=== PATIENT | male | born 1945 | race Caucasian/White ===

== ENCOUNTER 2022-03-07 16:18 | Inpatient (IN) | payer MEDICARE, OTHER ==
[~2022-03-07] VITALS: Ht 182.9 cm; Wt 93.4 kg
[2022-03-07 17:00] LABS: HEMATOCRIT 41.6 % (36.7-47.1); MEAN CORPUSCULAR HEMOGLOBIN 30.8 uug (23.8-33.4); MEAN CORPUSCULAR VOLUME 91.6 fL (73.0-96.2); PLATELET COUNT (AUTO) 212 K/uL (152-348)
[2022-03-07 17:12] LABS: ETHANOL < 3 MG/DL (0-0)
[2022-03-07] MEDS ORDERED: OLANZAPINE 10 MG VIAL IM ONE ×2 (17:15→17:23)
[2022-03-07 17:20] LABS: ALANINE AMINOTRANSFERASE 16 U/L (16-63); ALKALINE PHOSPHATASE 82 U/L (50-136); ASPARTATE AMINOTRANSFERASE 7 U/L (15-37); BILIRUBIN,TOTAL 0.6 mg/dL (0.2-1.0); CARBON DIOXIDE 26 mmol/L (21-32); CHLORIDE 105 mmol/L (98-107); GLUCOSE 104 mg/dL (74-106); TOTAL PROTEIN, SERUM 6.7 g/dL (6.4-8.2); UREA NITROGEN, BLOOD 16 mg/dL (7-18)
[2022-03-07 17:23] LABS: ACETAMINOPHEN < 10.0 ug/mL (10-30)
--- NOTE | 2022-03-07 17:32 | NUR ---
called lynn crisis team millwright helper, i left message for her on mobile number.
[2022-03-07] MEDS ORDERED: MIDAZOLAM HCL 2 MG/2 ML VIAL IM ONE (18:30)
[2022-03-07] MEDS ORDERED: ZIPRASIDONE MESYLATE 20 MG VIAL IM ONE ×2 (18:30→18:40)
[2022-03-07] MEDS ORDERED: MIDAZOLAM HCL 2 MG/2 ML VIAL ONE (18:42)
[2022-03-07] MEDS ORDERED: ASPI-612 PO (18:47)
[2022-03-07] MEDS ORDERED: ACET500C4 PO (18:47)
[2022-03-07] MEDS ORDERED: ACET325T53 PO (18:47)
[2022-03-07] MEDS ORDERED: FINA5TAB11 PO (18:48)
[2022-03-07] MEDS ORDERED: GABA-534 PO (18:48)
[2022-03-07] MEDS ORDERED: DOCU100C36 PO (18:48)
[2022-03-07] MEDS ORDERED: MULT-594 PO (18:50)
[2022-03-07] MEDS ORDERED: ONDA8TAB9 PO (18:50)
[2022-03-07] MEDS ORDERED: LORA0.5T PO (18:50)
[2022-03-07] MEDS ORDERED: OXYC-162 PO (18:52)
[2022-03-07] MEDS ORDERED: POLY17PO52 PO (18:52)
[2022-03-07] MEDS ORDERED: QUET25TA36 PO (18:52)
[2022-03-07] MEDS ORDERED: TAMS-3 PO (18:53)
--- NOTE | 2022-03-07 19:35 | NUR ---
PET team/Jessica here to do eval.
--- NOTE | 2022-03-07 22:15 | NUR ---
Pt. admitted to MHU room 139B , under care of Dr. Leyva. Belongs List completed.
[2022-03-07] MEDS ORDERED: BLOOD SUGAR DIAGNOSTIC 1 EACH STRIP VI ONE (22:45)
[2022-03-07] MEDS ORDERED: MAG HYDROX/AL HYDROX/SIMETH 30 ML LIQUID UDC PO PRN (22:45)
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
[2022-03-08] MEDS: LORAZEPAM 0.5 MG TABLET PO PRN ×2 (01:08→20:32)
[2022-03-08] MEDS: TEMAZEPAM 7.5 MG CAPSULE PO PRN (01:08)
[2022-03-08 01:58] VITALS: BP 132/74
[2022-03-08 07:53] VITALS: BP 124/71
[2022-03-08] MEDS ORDERED: OXYCODONE/APAP 5-325 MG TABLET PO PRN (10:45)
[2022-03-08] MEDS ORDERED: LORAZEPAM 0.5 MG TABLET PO PRN (10:45)
[2022-03-08] MEDS ORDERED: ACETAMINOPHEN 325 MG TABLET-SA PATIENTS-PAIN ONLY PO SCH (12:00)
[2022-03-08] MEDS: GABAPENTIN 300 MG CAPSULE PO SCH ×2 (12:33→18:07)
[2022-03-08] MEDS: ASPIRIN 325 MG TABLET PO SCH ×2 (12:33→20:26)
[2022-03-08] MEDS ORDERED: MULT-213 PO (12:44)
[2022-03-08] MEDS ORDERED: ONDA8TAB65 PO (12:48)
[2022-03-08 16:25] VITALS: BP 120/64
[2022-03-08] MEDS ORDERED: QUETIAPINE FUMARATE 25 MG TABLET PO SCH (17:00)
[2022-03-08] MEDS: DOCUSATE SODIUM 100 MG CAPSULE PO SCH (18:07)
[2022-03-08] MEDS: MIRALAX 17 GM POWD.PACK PO SCH (18:07)
[2022-03-08 20:13] VITALS: BP 126/84
[2022-03-08] MEDS: TAMSULOSIN HCL 0.4 MG CAP.SR.24H PO SCH (20:26)
[2022-03-08] MEDS: FINASTERIDE 5 MG TABLET PO SCH (20:26)
[2022-03-08] MEDS ORDERED: QUETIAPINE FUMARATE 25 MG TABLET PO ONE (21:15)
--- NOTE | 2022-03-09 04:40 | NUR ---
Received patient in bed, awake but confused. This handbook writer was able to talk with the patient who was calm and cooperative. PM care provided and patient was turned and repositioned during the night for comfort. The patient is medication compliant and has shown no sign of aggression so far this shift. Safety stratiges are in place and handbook writer will continue to monitor the patient for any behavior escalation and monitor pain as well. Oral fluids encouraged during the night.Plan to assist patient to the jane chair in the am if the patient is willing and can tolerate it.
[2022-03-09 07:30] VITALS: BP 119/68
[2022-03-09] MEDS: GABAPENTIN 300 MG CAPSULE PO SCH ×3 (08:52→16:28)
[2022-03-09] MEDS: DOCUSATE SODIUM 100 MG CAPSULE PO SCH ×2 (08:52→16:29)
[2022-03-09] MEDS: MULTIVIT, IRON, MIN NO. 8, FA TABLET PO SCH (08:52)
[2022-03-09] MEDS: ASPIRIN 325 MG TABLET PO SCH ×2 (08:52→20:10)
[2022-03-09] MEDS: MIRALAX 17 GM POWD.PACK PO SCH ×2 (08:53→16:29)
[2022-03-09] MEDS ORDERED: Medication Not On Formulary EA (Multivitamins (Multivitamin) 1 TAB) PO SCH (09:00)
[2022-03-09] MEDS: QUETIAPINE FUMARATE 25 MG TABLET PO SCH ×4 (12:12→20:12)
[2022-03-09] MEDS: DIVALPROEX SPRINKLE 125 MG CAP.SPRINK PO SCH ×2 (12:12→18:00)
--- NOTE | 2022-03-09 16:30 | NUR ---
ALFONZO Initial Discharge Note: Pt currently resides at [facility] located at [address] [phone]. ALFONZO will contact pt's sister, Leigh ([phone]) ad further discuss pt's discharge plan to return to [facility]. Per report from [address] in [place] by Helen ([phone]) , pt's sister, Leigh is in process of conservatorship. ALFONZO will continue to work with pt, family and MD to ensure a safe and proper discharge plan.
[2022-03-09 16:41] VITALS: BP 120/70
--- NOTE | 2022-03-09 17:02 | NUR ---
patient is AAO x1 to himself only, total care to all ADLS, assisted with meals ,denies any pain or discomfort. patient with poor insight and judgement will continue close monitoring.
[2022-03-09 19:41] VITALS: BP 102/69
[2022-03-09] MEDS: TAMSULOSIN HCL 0.4 MG CAP.SR.24H PO SCH (20:09)
[2022-03-09] MEDS: FINASTERIDE 5 MG TABLET PO SCH (20:10)
[2022-03-09] MEDS: LORAZEPAM 0.5 MG TABLET PO PRN (20:10)
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
[2022-03-10] MEDS: DOCUSATE SODIUM 100 MG CAPSULE PO SCH ×2 (08:50→16:29)
[2022-03-10] MEDS: MIRALAX 17 GM POWD.PACK PO SCH ×2 (08:50→16:29)
[2022-03-10] MEDS: GABAPENTIN 300 MG CAPSULE PO SCH ×3 (08:50→16:29)
[2022-03-10] MEDS: QUETIAPINE FUMARATE 25 MG TABLET PO SCH ×3 (08:50→21:51)
[2022-03-10] MEDS: DIVALPROEX SPRINKLE 125 MG CAP.SPRINK PO SCH ×2 (08:50→16:49)
[2022-03-10] MEDS: ASPIRIN 325 MG TABLET PO SCH ×2 (08:50→21:50)
[2022-03-10] MEDS: LORAZEPAM 0.5 MG TABLET PO PRN (08:50)
[2022-03-10] MEDS: MULTIVIT, IRON, MIN NO. 8, FA TABLET PO SCH (09:02)
[2022-03-10 09:29] VITALS: BP 127/76
[2022-03-10 18:55] VITALS: BP 127/67
[2022-03-10 20:08] VITALS: BP 134/86
[2022-03-10] MEDS: TAMSULOSIN HCL 0.4 MG CAP.SR.24H PO SCH (21:36)
[2022-03-10] MEDS: FINASTERIDE 5 MG TABLET PO SCH (21:37)
--- NOTE | 2022-03-11 05:02 | NUR ---
Patient has been asleep most of the night , but when he was awake, the patient was combative and verbally abusive to the staff providing care. Total assist with igor care, encouragement needed when taking medications. The patient is resistant to medications at times and during the night this patient is unable to engage in any meaningful conversation. Mood is angry, behavior is combative.
[2022-03-11 07:40] VITALS: BP 120/58
[2022-03-11] MEDS: LORAZEPAM 0.5 MG TABLET PO PRN ×3 (08:21→16:38)
[2022-03-11] MEDS: MIRALAX 17 GM POWD.PACK PO SCH ×2 (08:39→16:38)
[2022-03-11] MEDS: ASPIRIN 325 MG TABLET PO SCH ×2 (08:39→20:20)
[2022-03-11] MEDS: DOCUSATE SODIUM 100 MG CAPSULE PO SCH ×2 (08:40→16:38)
[2022-03-11] MEDS: GABAPENTIN 300 MG CAPSULE PO SCH ×3 (08:40→16:38)
[2022-03-11] MEDS: QUETIAPINE FUMARATE 25 MG TABLET PO SCH ×2 (08:40→16:38)
[2022-03-11] MEDS: DIVALPROEX SPRINKLE 125 MG CAP.SPRINK PO SCH ×2 (08:40→16:38)
[2022-03-11] MEDS: MULTIVIT, IRON, MIN NO. 8, FA TABLET PO SCH (08:40)
[2022-03-11] MEDS: ACETAMINOPHEN 325 MG TABLET PO PRN (12:38)
--- NOTE | 2022-03-11 15:20 | NUR ---
GPS: Nursing Notes: Thought Disorder: Patient is awake and responding to his name, impaired judgment, loud and pressured speech, labile, unpredictable behavior, episodes of talking incoherently, A/Ox1, poor impulse control, disorganized, disoriented, poor insight, unable to formulate a viable plan for self care, continue to monitor for safety, continue with treatment plan.
[2022-03-11 16:09] VITALS: BP 127/65
[2022-03-11 19:50] VITALS: BP 132/56
[2022-03-11] MEDS: QUETIAPINE FUMARATE 100 MG TABLET PO SCH (20:19)
[2022-03-11] MEDS: TAMSULOSIN HCL 0.4 MG CAP.SR.24H PO SCH (20:19)
[2022-03-11] MEDS: FINASTERIDE 5 MG TABLET PO SCH (20:19)
--- NOTE | 2022-03-11 21:12 | NUR ---
GPS: Pt.is confused,disoriented and disorganized. Poor insight to present situation. Refused bedtime meds.despite explanation of risks vs benefits x3. Uncooperative/resistant during incontinence care. Re-directed prn. Fall precautions observed. Will continue to monitor.
[2022-03-12 07:39] VITALS: BP 115/62
[2022-03-12] MEDS: ASPIRIN 325 MG TABLET PO SCH ×2 (08:46→20:46)
[2022-03-12] MEDS: GABAPENTIN 300 MG CAPSULE PO SCH ×3 (08:46→16:40)
[2022-03-12] MEDS: LORAZEPAM 0.5 MG TABLET PO PRN ×3 (08:46→16:28)
[2022-03-12] MEDS: QUETIAPINE FUMARATE 25 MG TABLET PO SCH ×2 (08:46→16:40)
[2022-03-12] MEDS: DIVALPROEX SPRINKLE 125 MG CAP.SPRINK PO SCH ×2 (08:46→16:40)
[2022-03-12] MEDS: MIRALAX 17 GM POWD.PACK PO SCH ×2 (08:46→16:41)
[2022-03-12] MEDS: DOCUSATE SODIUM 100 MG CAPSULE PO SCH ×2 (08:47→16:40)
[2022-03-12] MEDS: MULTIVIT, IRON, MIN NO. 8, FA TABLET PO SCH (08:47)
--- NOTE | 2022-03-12 10:20 | NUR ---
Firearms Report: Compliance Technician completed and submitted a [employer]J firearms report for 5150 a danger to others and grave disability certifications. A copy of report has been placed in patient chart.
--- NOTE | 2022-03-12 11:35 | NUR ---
GPS: Nursing Notes: Thought Disorder: Patient is awake and responding to his name, impaired judgment, poor anger management, resistant with nursing care, verbal abusive toward staff, loud and pressured speech, redirected and reoriented, but stated "You are and idiot.." episodes of talking incoherently, disoriented, disorganized, confused, believes that he is not a patient here, believes that he can walk by self, but he has unsteady and weak gait, unable to formulate a viable plan for self care, unkempt appearance, continue to monitor for safety, continue with treatment plan.
[2022-03-12] MEDS: ACETAMINOPHEN 325 MG TABLET PO PRN (12:08)
[2022-03-12 16:10] VITALS: BP 125/80
[2022-03-12 19:56] VITALS: BP 126/66
[2022-03-12] MEDS: QUETIAPINE FUMARATE 100 MG TABLET PO SCH (20:46)
[2022-03-12] MEDS: TAMSULOSIN HCL 0.4 MG CAP.SR.24H PO SCH (20:46)
[2022-03-12] MEDS: FINASTERIDE 5 MG TABLET PO SCH (20:46)
--- NOTE | 2022-03-13 05:26 | NUR ---
GPS NOTES: Received patient in his room, he remain A&Ox1, he is confused and only responding to his name. No distress noted. Patient refused to be transfer from bed to chair. He also refused PRN sleeping pills. Patient is mostly sleeping during shift. No apparent distress noted. He is closely monitored and kept safe.
[2022-03-13] MEDS: LORAZEPAM 0.5 MG TABLET PO PRN ×4 (08:22→20:16)
[2022-03-13] MEDS: ASPIRIN 325 MG TABLET PO SCH ×2 (08:36→20:16)
[2022-03-13] MEDS: MULTIVIT, IRON, MIN NO. 8, FA TABLET PO SCH (08:36)
[2022-03-13] MEDS: DOCUSATE SODIUM 100 MG CAPSULE PO SCH ×2 (08:36→16:34)
[2022-03-13] MEDS: DIVALPROEX SPRINKLE 125 MG CAP.SPRINK PO SCH ×2 (08:36→16:34)
[2022-03-13] MEDS: MIRALAX 17 GM POWD.PACK PO SCH ×2 (08:36→16:34)
[2022-03-13] MEDS: QUETIAPINE FUMARATE 25 MG TABLET PO SCH ×2 (08:36→16:34)
[2022-03-13] MEDS: GABAPENTIN 300 MG CAPSULE PO SCH ×3 (08:36→16:34)
[2022-03-13 08:45] VITALS: BP 146/68
--- NOTE | 2022-03-13 11:22 | NUR ---
GPS: 14 PCH DONE WITH PROBABLE CAUSE ON GRAVE DISABILITY ONLY. PT REFUSED ATTENDING.
[2022-03-13] MEDS: GLUCERNA SHAKE 237 ML CAN PO SCH (13:04)
--- NOTE | 2022-03-13 15:46 | NUR ---
GPS: Nursing Notes: Thought Disorder: Patient is awake and responding to his name, poor anger management, poor impulse control, on fall precautions, trying to out of bed by self, but when staff assisted him, patient started shouting "He is hurting me..He is killing me..", with assistance from another staff able to change his wet diaper, verbal abusive toward staff, placed on the jane chair and brought to the activity room, episode of disruption by shouting, unable to formulate a viable plan for self care, confused, disoriented, talking incoherently at times, disoriented, redirected and reoriented during shift, continue to monitor for safety, continue with treatment plan.
[2022-03-13 16:58] VITALS: BP 113/69
[2022-03-13 19:54] VITALS: BP 143/70
[2022-03-13] MEDS: QUETIAPINE FUMARATE 100 MG TABLET PO SCH (20:16)
[2022-03-13] MEDS: FINASTERIDE 5 MG TABLET PO SCH (20:16)
[2022-03-13] MEDS: TAMSULOSIN HCL 0.4 MG CAP.SR.24H PO SCH (20:16)
[2022-03-13] MEDS: TEMAZEPAM 7.5 MG CAPSULE PO PRN (20:44)
[2022-03-14 07:30] VITALS: BP 121/69
[2022-03-14 07:38] LABS: HEMATOCRIT 40.4 % (36.7-47.1); MEAN CORPUSCULAR HEMOGLOBIN 31.2 uug (23.8-33.4); MEAN CORPUSCULAR VOLUME 90.4 fL (73.0-96.2); PLATELET COUNT (AUTO) 194 K/uL (152-348)
[2022-03-14 07:55] LABS: BILIRUBIN,TOTAL 0.6 mg/dL (0.2-1.0); CREATININE 1.1 mg/dL (0.6-1.3); POTASSIUM 3.9 mmol/L (3.5-5.1); TOTAL PROTEIN, SERUM 6.3 g/dL (6.4-8.2)
[2022-03-14] MEDS: ASPIRIN 325 MG TABLET PO SCH ×2 (09:21→20:38)
[2022-03-14] MEDS: DIVALPROEX SPRINKLE 125 MG CAP.SPRINK PO SCH ×2 (09:21→12:59)
[2022-03-14] MEDS: QUETIAPINE FUMARATE 25 MG TABLET PO SCH ×2 (09:21→17:22)
[2022-03-14] MEDS: GABAPENTIN 300 MG CAPSULE PO SCH ×3 (09:21→17:22)
[2022-03-14] MEDS: MIRALAX 17 GM POWD.PACK PO SCH ×2 (09:21→17:23)
[2022-03-14] MEDS: MULTIVIT, IRON, MIN NO. 8, FA TABLET PO SCH (09:21)
[2022-03-14] MEDS: DOCUSATE SODIUM 100 MG CAPSULE PO SCH ×2 (09:21→17:22)
[2022-03-14] MEDS: GLUCERNA SHAKE 237 ML CAN PO SCH (09:22)
--- NOTE | 2022-03-14 16:12 | NUR ---
Patient is labile, anxious, confused at times, aggressive towards staff, demanding, compliant with medications with prompts. A/O X 2 to person. Patient requires more than minimal assistance with ADL. Reality orientation provided. Fall and safety precautions implemented.
[2022-03-14 17:04] VITALS: BP 116/74
[2022-03-14] MEDS: DIVALPROEX 500 MG TABLET.DR PO SCH (17:22)
[2022-03-14 19:46] VITALS: BP 125/71
[2022-03-14] MEDS: QUETIAPINE FUMARATE 100 MG TABLET PO SCH (20:38)
[2022-03-14] MEDS: TAMSULOSIN HCL 0.4 MG CAP.SR.24H PO SCH (20:38)
[2022-03-14] MEDS: FINASTERIDE 5 MG TABLET PO SCH (20:39)
--- NOTE | 2022-03-14 21:46 | NUR ---
GPS: Nursing Notes: Received Patient lying in bed ,awake and responding to his name, poor impulse control, on fall precautions, assistance to change his wet diaper, patient is verbal abusive toward staff, unable to formulate a viable plan for self care, confused, disoriented, talking incoherently at times, redirected and reoriented provided during shift, continue to monitor for safety, continue with treatment plan.
--- NOTE | 2022-03-15 05:52 | NUR ---
GPS: Remain calm and cooperative with meds and carte. no agitation noted at this time. assisted with adl's. good igor care given. assisted in jane chair. slept 9 hrs through the night. continue plan of care.
[2022-03-15 07:30] VITALS: BP 116/63
[2022-03-15] MEDS: ASPIRIN 325 MG TABLET PO SCH ×2 (08:41→20:24)
[2022-03-15] MEDS: GABAPENTIN 300 MG CAPSULE PO SCH ×3 (08:41→17:23)
[2022-03-15] MEDS: MULTIVIT, IRON, MIN NO. 8, FA TABLET PO SCH (08:41)
[2022-03-15] MEDS: QUETIAPINE FUMARATE 25 MG TABLET PO SCH ×2 (08:41→17:23)
[2022-03-15] MEDS: DOCUSATE SODIUM 100 MG CAPSULE PO SCH ×2 (08:41→17:23)
[2022-03-15] MEDS: DIVALPROEX SPRINKLE 125 MG CAP.SPRINK PO SCH ×2 (08:41→15:02)
[2022-03-15] MEDS: GLUCERNA SHAKE 237 ML CAN PO SCH (08:42)
[2022-03-15] MEDS: MIRALAX 17 GM POWD.PACK PO SCH ×2 (08:42→17:23)
[2022-03-15 16:00] VITALS: BP 107/65
--- NOTE | 2022-03-15 16:16 | NUR ---
Patient is talkative, anxious at times, cooperative with nursing care, confused, forgetful, compliant with medications. A/O X 2 to person. Requires more than minimal assistance with ADL. Reassurance given. Fall and safety precautions implemented.
[2022-03-15] MEDS: DIVALPROEX 500 MG TABLET.DR PO SCH (17:23)
[2022-03-15] MEDS: REMEDY ESSENTIAL ZINC PASTE 113 GM TOP PRN (20:20)
[2022-03-15] MEDS: FINASTERIDE 5 MG TABLET PO SCH (20:24)
[2022-03-15] MEDS: QUETIAPINE FUMARATE 100 MG TABLET PO SCH (20:24)
[2022-03-15] MEDS: TAMSULOSIN HCL 0.4 MG CAP.SR.24H PO SCH (20:24)
[2022-03-15 20:25] VITALS: BP 126/72
--- NOTE | 2022-03-15 21:19 | NUR ---
GPS: Pt.took all his bedtime meds.with little persuasion from staff. Remains confused,forgetful with poor insight to his present situation. Re-directed prn. Fall precautions observed. No aggressive behavior noted. Will continue to monitor.
[2022-03-16 07:30] VITALS: BP 106/52
[2022-03-16] MEDS: QUETIAPINE FUMARATE 25 MG TABLET PO SCH ×2 (08:32→17:45)
[2022-03-16] MEDS: MULTIVIT, IRON, MIN NO. 8, FA TABLET PO SCH (08:32)
[2022-03-16] MEDS: GABAPENTIN 300 MG CAPSULE PO SCH ×4 (08:32→17:45)
[2022-03-16] MEDS: DOCUSATE SODIUM 100 MG CAPSULE PO SCH ×3 (08:32→17:45)
[2022-03-16] MEDS: ASPIRIN 325 MG TABLET PO SCH ×2 (08:32→20:43)
[2022-03-16] MEDS: DIVALPROEX SPRINKLE 125 MG CAP.SPRINK PO SCH ×3 (08:32→13:00)
[2022-03-16] MEDS: MIRALAX 17 GM POWD.PACK PO SCH ×2 (08:33→17:46)
[2022-03-16] MEDS: GLUCERNA SHAKE 237 ML CAN PO SCH (08:34)
--- NOTE | 2022-03-16 09:00 | NUR ---
Firearms Report: Lathe Set Up Person completed and submitted a DOJ firearms report for 5150 a danger to others and grave disability certifications on 03/12/22. A copy of report has been placed in patient chart.
--- NOTE | 2022-03-16 13:07 | NUR ---
Clinical SW Note: Pt's sister Laura's ([phone]) prosecuting attorney delivered conservatorship paperwork to the pt and informed SW that there will be a temporary conservatorship hearing.
--- NOTE | 2022-03-16 14:12 | NUR ---
Patient is confused, forgetful, refusing and spitting medications after lunch, loud at times. A/O X 2 to person. Patient requires more than minimal assistance with ADL, incontinent. Reality orientation provided. Fall and safety precautions implemented.
[2022-03-16 16:00] VITALS: BP 109/67
[2022-03-16] MEDS: LORAZEPAM 0.5 MG TABLET PO PRN (17:22)
[2022-03-16] MEDS: DIVALPROEX 500 MG TABLET.DR PO SCH (17:45)
[2022-03-16 19:59] VITALS: BP 128/78
[2022-03-16] MEDS: TAMSULOSIN HCL 0.4 MG CAP.SR.24H PO SCH (20:31)
[2022-03-16] MEDS: QUETIAPINE FUMARATE 100 MG TABLET PO SCH (20:32)
[2022-03-16] MEDS: FINASTERIDE 5 MG TABLET PO SCH (20:43)
[2022-03-17] MEDS: MAGNESIUM HYDROXIDE 30 ML LIQUID UDC PO PRN ×2 (00:31→20:05)
--- NOTE | 2022-03-17 04:58 | NUR ---
GPS: Nursing Notes: Confusion: Patient continues to be delusional and expresses confused remarks such as "Why am I taking night medications when it's daytime?' Patient yelled out a few times throughout the night, but when staff asked what he needed, he replied with tangential statements. Patient refused to take some medication even with re-education and assurance. Patient remained in bed semi-fowlers, bed in lowest position, 2 side-rails up, and slept most of the night. Will continue to monitor for appropriate cognition, saftey, and compliance. Addendum: 03/17/22 at 0511 by BRIAN LAKE LVN Gave MOM for constipation. Patient did not have a BM during shift.
[2022-03-17 07:47] VITALS: BP 103/64
[2022-03-17] MEDS: QUETIAPINE FUMARATE 25 MG TABLET PO SCH ×2 (08:18→16:53)
[2022-03-17] MEDS: DIVALPROEX SPRINKLE 125 MG CAP.SPRINK PO SCH ×2 (08:18→12:11)
[2022-03-17] MEDS: DOCUSATE SODIUM 100 MG CAPSULE PO SCH ×2 (08:18→16:53)
[2022-03-17] MEDS: MIRALAX 17 GM POWD.PACK PO SCH ×2 (08:19→16:53)
[2022-03-17] MEDS: MULTIVIT, IRON, MIN NO. 8, FA TABLET PO SCH (08:19)
[2022-03-17] MEDS: GABAPENTIN 300 MG CAPSULE PO SCH ×3 (08:19→16:52)
[2022-03-17] MEDS: GLUCERNA SHAKE 237 ML CAN PO SCH (08:19)
[2022-03-17] MEDS: ASPIRIN 325 MG TABLET PO SCH ×2 (08:33→20:04)
[2022-03-17 15:02] VITALS: BP 114/70
[2022-03-17] MEDS: DIVALPROEX 500 MG TABLET.DR PO SCH (16:53)
[2022-03-17] MEDS: LORAZEPAM 0.5 MG TABLET PO PRN (18:43)
[2022-03-17 20:00] VITALS: BP 123/78
[2022-03-17] MEDS: TAMSULOSIN HCL 0.4 MG CAP.SR.24H PO SCH (20:04)
[2022-03-17] MEDS: FINASTERIDE 5 MG TABLET PO SCH (20:04)
[2022-03-17] MEDS: QUETIAPINE FUMARATE 100 MG TABLET PO SCH (20:05)
[2022-03-17] MEDS: REMEDY ESSENTIAL ZINC PASTE 113 GM TOP PRN (21:03)
[2022-03-18 07:30] VITALS: BP 116/72
[2022-03-18] MEDS: DIVALPROEX SPRINKLE 125 MG CAP.SPRINK PO SCH ×2 (08:47→12:41)
[2022-03-18] MEDS: MULTIVIT, IRON, MIN NO. 8, FA TABLET PO SCH (08:48)
[2022-03-18] MEDS: DOCUSATE SODIUM 100 MG CAPSULE PO SCH ×2 (08:48→17:38)
[2022-03-18] MEDS: MIRALAX 17 GM POWD.PACK PO SCH ×2 (08:48→17:38)
[2022-03-18] MEDS: GABAPENTIN 300 MG CAPSULE PO SCH ×3 (08:48→17:38)
[2022-03-18] MEDS: QUETIAPINE FUMARATE 25 MG TABLET PO SCH ×2 (08:48→17:38)
[2022-03-18] MEDS: ASPIRIN 325 MG TABLET PO SCH ×2 (08:48→20:29)
[2022-03-18] MEDS: GLUCERNA SHAKE 237 ML CAN PO SCH (08:49)
[2022-03-18] MEDS ORDERED: SORBITOL 70% SOLUTION 30 ML UDC PO ONE (09:00)
[2022-03-18] MEDS ORDERED: LACTULOSE 20 G/30 ML LIQUID UDC PO ONE (09:00)
--- NOTE | 2022-03-18 15:00 | NUR ---
Patient is given Sorbitol 70% solution for constipation at 09:42am, ineffective. Lactulose 20g/30 ml for constipation at 08:55 am, ineffective. Also patient has Miralax and Colace schedule 3 X per day, ineffective.
--- NOTE | 2022-03-18 15:20 | NUR ---
Patient is confused, forgetful, talkative, talkative, sociable, does not like to be helped, compliant with medications with prompts. Pt. has poor impulse control, poor safety awareness. Patient requires more than minimal assistance with ADL. Patient is encourage to verbalize concerns. Fall and safety precautions implemented.
[2022-03-18 16:00] VITALS: BP 137/70
[2022-03-18] MEDS: DIVALPROEX 500 MG TABLET.DR PO SCH (17:38)
[2022-03-18 19:54] VITALS: BP 118/68
[2022-03-18] MEDS: TAMSULOSIN HCL 0.4 MG CAP.SR.24H PO SCH (20:29)
[2022-03-18] MEDS: QUETIAPINE FUMARATE 100 MG TABLET PO SCH (20:29)
[2022-03-18] MEDS: FINASTERIDE 5 MG TABLET PO SCH (20:29)
--- NOTE | 2022-03-18 20:50 | NUR ---
GPS: Pt.in bed resting comfortably. Compliant with bedtime meds. No aggressive behavior noted. Prune juice given to help relieve constipation. Monitored closely. Denies any form of discomfort. No N/V noted. Will continue to monitor. Re-directed prn.
[2022-03-18] MEDS: MAGNESIUM HYDROXIDE 30 ML LIQUID UDC PO PRN (21:24)
--- NOTE | 2022-03-18 22:56 | NUR ---
GPS: Pt.just had a large bowel movement. Good igor-anal care rendered. Denies pain at this time. Will continue to monitor.
[2022-03-18] MEDS: REMEDY ESSENTIAL ZINC PASTE 113 GM TOP PRN (23:40)
[2022-03-19 07:51] VITALS: BP 134/73
--- NOTE | 2022-03-19 08:35 | NUR ---
ALFONZO Discharge Note: Pt will be discharged to [facility] [address] ([phone]) via Ambulance transportation at 11AM. ALFONZO spoke with admin coordinator, Wanda at the facility who states they are ready to accept the patient today. Pt is aware and agreeable with discharge plan. ALFONZO informed pts sister, Leny ([phone]) regarding the discharge plan to [facility]. Laura is aware and agreeable with discharge plan. Pt is alert and oriented x1, is unable to plan for self-care at this time. However, pt is willing to accept care at [facility]. Pt denies any suicidal or homicidal ideation. Pt will follow-up at the facility with Psychiatrist, Dr. Leyva ([phone]) and Textile Colorist Dyer, Dr. Luna. Pt presents with calm mood and congruent affect. PHARMACY: [facility] [phone]) [address] [place] [address].
[2022-03-19] MEDS: DOCUSATE SODIUM 100 MG CAPSULE PO SCH ×2 (08:50→16:50)
[2022-03-19] MEDS: MULTIVIT, IRON, MIN NO. 8, FA TABLET PO SCH (08:50)
[2022-03-19] MEDS: DIVALPROEX SPRINKLE 125 MG CAP.SPRINK PO SCH ×2 (08:50→12:21)
[2022-03-19] MEDS: ASPIRIN 325 MG TABLET PO SCH ×2 (08:50→20:12)
[2022-03-19] MEDS: GABAPENTIN 300 MG CAPSULE PO SCH ×3 (08:50→16:50)
[2022-03-19] MEDS: MIRALAX 17 GM POWD.PACK PO SCH ×2 (08:50→16:50)
[2022-03-19] MEDS: QUETIAPINE FUMARATE 25 MG TABLET PO SCH ×3 (08:50→16:50)
--- NOTE | 2022-03-19 09:37 | NUR ---
ALFONZO Family Contact: SW spoke with pt's sister, Laura ([phone]) [place] [address] ([phone]) via Ambulance transportation at 11AM. Laura is aware and agreeable.
--- NOTE | 2022-03-19 11:47 | NUR ---
ALFONZO Family Contact: ALFONZO spoke with pt's sister, Laura ([phone]) and informed her that pt's discharge to [facility] [place] [address] ([phone]) via Ambulance transportation at 11AM is cancelled due to pt's current behavior. ALFONZO informed her that the Psychiatrist would like to postpone for a day or two to ensure pt's stable and safe behavior for a safe discharge to a group home facility. ALFONZO also informed her that the pt will not be discharging to [facility] anymore per admissions. Laura is aware and agreeable for other locations for this junior underwriter to locate for the pt for discharge.
--- NOTE | 2022-03-19 15:47 | NUR ---
ALFONZO Family Contact: Pt's sister, Laura left a voicemail for this selling underwriter stating that she is agreeable to any usp facility for this pt upon discharge and that she will make it work. Laura stated she is grateful for this writers help in finding safe placement. ALFONZO informed Paychiatrist, Dr. Leyva. Per Dr. Leyva, ALFONZO will refer pt to [facility] [phone] for pt's continuation of care.
--- NOTE | 2022-03-19 16:14 | NUR ---
SNF Referral: SW faxed patient's referral packet including: History and Physical, Consultation, Progress Notes, Medication List and Labs to the following facilities for review and possible shelter placement: [facility] located at [address] [place] [address] ([phone]) and spoke with Mike at the facility.
[2022-03-19] MEDS: LORAZEPAM 0.5 MG TABLET PO PRN ×2 (16:38→20:11)
[2022-03-19] MEDS: DIVALPROEX 500 MG TABLET.DR PO SCH (16:50)
[2022-03-19 17:23] VITALS: BP 122/70
[2022-03-19 19:46] VITALS: BP 112/65
[2022-03-19] MEDS: QUETIAPINE FUMARATE 100 MG TABLET PO SCH (20:11)
[2022-03-19] MEDS: TAMSULOSIN HCL 0.4 MG CAP.SR.24H PO SCH (20:12)
[2022-03-19] MEDS: FINASTERIDE 5 MG TABLET PO SCH (20:12)
[2022-03-20] MEDS: REMEDY ESSENTIAL ZINC PASTE 113 GM TOP PRN ×2 (02:13→20:08)
--- NOTE | 2022-03-20 02:26 | NUR ---
Received patient in bed, yelling at the top of his lungs , unintelligible words. Went to check on patient and found him with his legs hanging over the side rails . The patient is combative and verbally abusive to the staff providing care. Assistance with ADL done requiring 2 staff members, and at that time the patient was trying to kick the SYSTEMS LEAD . Medications were taken freely when the patient calmed down. Safety Stratiges are in place. Continuing to monitor for further behavior escalation and medication compliance.
[2022-03-20 07:34] VITALS: BP 104/62
[2022-03-20] MEDS: LORAZEPAM 0.5 MG TABLET PO PRN ×3 (07:51→20:06)
[2022-03-20] MEDS: DOCUSATE SODIUM 100 MG CAPSULE PO SCH ×2 (08:18→16:51)
[2022-03-20] MEDS: QUETIAPINE FUMARATE 25 MG TABLET PO SCH ×3 (08:18→16:51)
[2022-03-20] MEDS: ASPIRIN 325 MG TABLET PO SCH ×2 (08:18→20:06)
[2022-03-20] MEDS: GABAPENTIN 300 MG CAPSULE PO SCH ×3 (08:18→16:51)
[2022-03-20] MEDS: DIVALPROEX SPRINKLE 125 MG CAP.SPRINK PO SCH ×2 (08:18→12:35)
[2022-03-20] MEDS: MIRALAX 17 GM POWD.PACK PO SCH ×2 (08:18→16:51)
[2022-03-20] MEDS: MULTIVIT, IRON, MIN NO. 8, FA TABLET PO SCH (08:19)
[2022-03-20 11:31] LABS: BILIRUBIN,TOTAL 0.4 mg/dL (0.2-1.0); POTASSIUM 3.9 mmol/L (3.5-5.1); TOTAL PROTEIN, SERUM 6.4 g/dL (6.4-8.2)
[2022-03-20 11:46] LABS: HEMATOCRIT 42.7 % (36.7-47.1); MEAN CORPUSCULAR HEMOGLOBIN 30.6 uug (23.8-33.4); MEAN CORPUSCULAR VOLUME 91.2 fL (73.0-96.2); PLATELET COUNT (AUTO) 217 K/uL (152-348)
--- NOTE | 2022-03-20 12:46 | NUR ---
GPS: Nursing Notes: Destructive Behavior To Others: Patient is awake and responding to his name, poor anger management, disorganized, disoriented, confused, resistant with nursing care, threatening staff, "I am going to kick your ass..", needs 3 staff to change his wet diaper, paranoid behavior, episodes talking incoherently, loud and pressured speech, needs a lot of prompting to be compliant with his medications, unable to formulate a viable plan for self care, continue to monitor for safety, continue with treatment plan.
[2022-03-20 13:35] LABS: EOSINOPHILS % (MANUAL) 4 % (0-8); LYMPHOCYTES % (MANUAL) 29 % (20-40); MONOCYTES % (MANUAL) 10 % (2-10); NEUTROPHILS % (MANUAL) 57 % (42-75)
[2022-03-20 13:44] LABS: *CLARITY,URINE CLEAR (CLEAR); *COLOR,URINE YELLOW (YELLOW); *KETONES,URINE TRACE (NEGATIVE); LEUKOCYTE ESTERASE ,URINE 1+ (NEGATIVE); NITRITE, URINE POSITIVE (NEGATIVE); UGLUCOSE NEGATIVE (NEGATIVE)
[2022-03-20 13:48] LABS: *BILIRUBIN,URIN 1+ (NEGATIVE); *BLOOD, URINE TRACE (NEGATIVE)
[2022-03-20 13:54] LABS: BACTERIA,URINE MANY /HPF (NONE SEEN); SQUAMOUS EPITHELIAL CELL,UR FEW /HPF (NONE SEEN)
[2022-03-20 15:47] VITALS: BP 120/79
[2022-03-20] MEDS: SULFAMETH/TRIMETH 800/160 MG TABLET PO SCH ×2 (15:57→20:06)
[2022-03-20] MEDS: DIVALPROEX 500 MG TABLET.DR PO SCH (16:50)
[2022-03-20] MEDS: TAMSULOSIN HCL 0.4 MG CAP.SR.24H PO SCH (20:06)
[2022-03-20] MEDS: FINASTERIDE 5 MG TABLET PO SCH (20:06)
[2022-03-20] MEDS: QUETIAPINE FUMARATE 100 MG TABLET PO SCH (20:06)
[2022-03-20 20:18] VITALS: BP 134/77
--- NOTE | 2022-03-21 02:54 | NUR ---
The patient remains verbally abusive and physically combative with the staff providing care. The patient has poor impulse control and unsafe judgement. Multiple diaper changes during the night, and patient is on antibiotics for a UTI. frequent igor care needed, plus turning and repositioning to prevent skin breakdown. It is difficult to communicate with this patient d/t his speech consists of nonsensical mixed up words, or a clearly spoken " fuck you , God damn it ". Safety stratiges are in place and staff is monitoring the patients aggressive behavior when in close proximity.
[2022-03-21 07:30] VITALS: BP 129/70
[2022-03-21] MEDS: DOCUSATE SODIUM 100 MG CAPSULE PO SCH ×2 (08:49→16:36)
[2022-03-21] MEDS: SULFAMETH/TRIMETH 800/160 MG TABLET PO SCH ×2 (08:49→21:06)
[2022-03-21] MEDS: MULTIVIT, IRON, MIN NO. 8, FA TABLET PO SCH (08:49)
[2022-03-21] MEDS: ASPIRIN 325 MG TABLET PO SCH ×2 (08:49→21:05)
[2022-03-21] MEDS: MIRALAX 17 GM POWD.PACK PO SCH ×2 (08:49→16:36)
[2022-03-21] MEDS: QUETIAPINE FUMARATE 25 MG TABLET PO SCH ×3 (08:49→16:36)
[2022-03-21] MEDS: GABAPENTIN 300 MG CAPSULE PO SCH ×3 (08:49→16:36)
[2022-03-21] MEDS: DIVALPROEX SPRINKLE 125 MG CAP.SPRINK PO SCH ×2 (08:49→13:13)
--- NOTE | 2022-03-21 14:06 | NUR ---
Patient is anxious and combative at times, confused, forgetful, disoriented, disorganized. Patient states "What are you cooking in that kitchen honey?" Compliant with medications with lots of prompts. A/O X 1 to person. Total care. Reassurance given. Fall and safety precautions implemented.
[2022-03-21 16:00] VITALS: BP 123/67
[2022-03-21] MEDS: DIVALPROEX 500 MG TABLET.DR PO SCH (16:36)
[2022-03-21] MEDS ORDERED: DIVALPROEX 250 MG TABLET.DR PO ONE (18:45)
--- NOTE | 2022-03-21 20:15 | NUR ---
RECEIVED PATIENT IN HIS ROOM IN BED SLEEPING BUT EASILY AROUSABLE TO THE TOUCH, PATIENT IS A/O TO NAME ONLY. HE IS CALM AT THIS TIME. HE IS UNABLE TO HAVE A MEANINGFUL CONVERSATION WITH THIS CUSTOMER ACQUISITION SPECIALIST. HE IS REASSURED FOR HIS SAFETY. SAFETY AND FALL PRECAUTIONS ARE IN PLACE. V/S ARE STABLE. HE IS IN NO DISTRESS. HE WAS OFFERED PO FLUIDS AND SNACKS BUT HE REFUSED. WILL CONTINUE TO MONITOR.
[2022-03-21 20:26] VITALS: BP 116/66
[2022-03-21] MEDS: TAMSULOSIN HCL 0.4 MG CAP.SR.24H PO SCH (21:05)
[2022-03-21] MEDS: FINASTERIDE 5 MG TABLET PO SCH (21:05)
[2022-03-21] MEDS: QUETIAPINE FUMARATE 100 MG TABLET PO SCH (21:05)
[2022-03-22 07:30] VITALS: BP 130/71
[2022-03-22] MEDS: DIVALPROEX SPRINKLE 125 MG CAP.SPRINK PO SCH (08:47)
[2022-03-22] MEDS: MULTIVIT, IRON, MIN NO. 8, FA TABLET PO SCH (08:47)
[2022-03-22] MEDS: SULFAMETH/TRIMETH 800/160 MG TABLET PO SCH (08:47)
[2022-03-22] MEDS: ASPIRIN 325 MG TABLET PO SCH (08:47)
[2022-03-22] MEDS: GABAPENTIN 300 MG CAPSULE PO SCH (08:48)
[2022-03-22] MEDS: DOCUSATE SODIUM 100 MG CAPSULE PO SCH (08:48)
[2022-03-22] MEDS: QUETIAPINE FUMARATE 25 MG TABLET PO SCH (08:48)
[2022-03-22] MEDS: MIRALAX 17 GM POWD.PACK PO SCH (08:48)
--- NOTE | 2022-03-22 08:56 | NUR ---
ALFONZO Discharge Note: Pt will be discharged to [facility] located at [address] [address] via Ambulance transportation at 11AM ([phone]). ALFONZO spoke with admin coordinator, Mike at the facility who states they are ready to accept the patient today. Pt is aware and agreeable with discharge plan. ALFONZO informed pts sister, Leny ([phone]) regarding the discharge plan to [facility]. Laura is aware and agreeable with discharge plan. Pt is alert and oriented x1, is unable to plan for self-care at this time. However, pt is willing to accept care at SNF. Pt denies any suicidal or homicidal ideation. Pt will follow-up at the facility with Psychiatrist, Dr. Leyva ([phone]) and Experimental Preflight Mechanic, Dr. Luna. Pt presents with calm mood and congruent affect. PHARMACY: PHARMACY: [facility] [phone]) [address] [place] [address].
--- NOTE | 2022-03-22 11:00 | NUR ---
Gps/Trim Carpenter- Called [facility], report was given to Baljeet Newton . Patient was well informed of his discharged to the SNF. All belongings was given back to patient. No complaints noted .
--- NOTE | 2022-03-22 11:17 | NUR ---
Gps/Clay Thrower- Discharged in good spirit , in no sign of any distress , all belongings was given back to patient. Patient's sister was well informed of the discharge plan per ALFONZO Mackey.
[2022-03-22] MEDS ORDERED: DIVALPROEX 250 MG TABLET.DR PO SCH (17:00)
== END 2022-03-22 11:15 | DRG 885 ==
LOC: ER 16:21 → GPS 21:59
PROVIDERS: ADMIT Psychiatry & Neurology Psychosomatic Medicine; ATTEND Internal Medicine
DX: F25.0 Schizoaffective disorder, bipolar type (principal); N39.0 Urinary tract infection, site not specified; G20 Parkinson's disease; N40.0 Benign prostatic hyperplasia without lower urinary tract symptoms; Z20.822 Contact with and (suspected) exposure to COVID-19; K59.00 Constipation, unspecified; F02.80 Dementia in other diseases classified elsewhere, unspecified severity, without behavioral disturbance, psychotic disturbance, mood disturbance, and anxiety; I10 Essential (primary) hypertension; Z72.89 Other problems related to lifestyle; F14.90 Cocaine use, unspecified, uncomplicated; B96.89 Other specified bacterial agents as the cause of diseases classified elsewhere
CPT/HCPCS: 36415; 70030-TC; 80164; 85025; 87086; A4663; G0480; J2250; J2358; J3486; J3490

== ENCOUNTER 2022-09-10 19:38 | Inpatient (IN) | payer MEDICARE, OTHER ==
[~2022-09-10] VITALS: Ht 182.9 cm; Wt 93.9 kg
[~2022-09-10 19:38] MED LIST: ACET325T53 PO; ACET500C4 PO; ASPI-612 PO; DOCU100C36 PO; FINA5TAB11 PO; GABA-534 PO; MULT-213 PO; ONDA8TAB65 PO; OXYC-162 PO; POLY17PO52 PO; TAMS-3 PO
[2022-09-10] MEDS ORDERED: IV NORMAL SALINE 1000 ML BAG IV ONE (20:15)
[2022-09-10] MEDS ORDERED: CRAN425C6 PO (20:29)
[2022-09-10] MEDS ORDERED: MAGN400O6 PO (20:29)
[2022-09-10] MEDS ORDERED: QUET25TA PO ×2 (20:29)
[2022-09-10] MEDS ORDERED: DIVA125C2 PO (20:29)
[2022-09-10] MEDS ORDERED: DIVA250T PO (20:29)
[2022-09-10 20:54] LABS: MEAN CORPUSCULAR HEMOGLOBIN 30.8 uug (23.8-33.4); MEAN CORPUSCULAR VOLUME 92.7 fL (73.0-96.2); PLATELET COUNT (AUTO) 195 K/uL (152-348)
--- NOTE | 2022-09-10 20:55 | NUR ---
Patient was given 10cc of water and tolerated the water very well. No coughing observed.
--- NOTE | 2022-09-10 21:05 | NUR ---
Patient is not able to participate in the NIH stroke scale as they are confused and unable to follow comands. Modified stroke scale was used. Patient passed swallow test.
[2022-09-10 21:07] LABS: CARBON DIOXIDE 31 mmol/L (21-32); CHLORIDE 104 mmol/L (98-107); GLUCOSE 109 mg/dL (74-106); POTASSIUM 3.9 mmol/L (3.5-5.1); UREA NITROGEN, BLOOD 17 mg/dL (7-18)
[2022-09-10 21:15] LABS: ALANINE AMINOTRANSFERASE 14 U/L (16-63); ALKALINE PHOSPHATASE 57 U/L (50-136); ASPARTATE AMINOTRANSFERASE 7 U/L (15-37); BILIRUBIN,DIRECT 0.2 mg/dL (0.0-0.2); TOTAL PROTEIN, SERUM 6.4 g/dL (6.4-8.2)
[2022-09-10 21:39] LABS: THYROID STIMULATING HORMONE 2.325 mIU/mL (0.358-3.740)
[2022-09-10 21:48] LABS: MAGNESIUM 1.9 mg/dL (1.8-2.4)
[2022-09-10 21:59] LABS: *BILIRUBIN,URIN NEGATIVE (NEGATIVE); *BLOOD, URINE 1+ (NEGATIVE); *COLOR,URINE YELLOW (YELLOW); *KETONES,URINE NEGATIVE (NEGATIVE); LEUKOCYTE ESTERASE ,URINE 2+ (NEGATIVE); NITRITE, URINE POSITIVE (NEGATIVE); UGLUCOSE NEGATIVE (NEGATIVE)
[2022-09-10 22:18] LABS: *CLARITY,URINE SLIGHTLY CLOUDY (CLEAR)
[2022-09-10 22:54] LABS: BACTERIA,URINE MANY /HPF (NONE SEEN); SQUAMOUS EPITHELIAL CELL,UR NONE SEEN /HPF (NONE SEEN); WBC,URINE TNTC /HPF (0-3)
[2022-09-10] MEDS ORDERED: MAGNESIUM HYDROXIDE 30 ML LIQUID UDC PO PRN (23:30)
[2022-09-10] MEDS ORDERED: ACETAMINOPHEN 325 MG TABLET PO PRN (23:30)
[2022-09-10] MEDS ORDERED: REMEDY ESSENTIAL ZINC PASTE 113 GM TP PRN (23:30)
[2022-09-10] MEDS ORDERED: ONDANSETRON 4 MG/2 ML VIAL IV PRN (23:30)
--- NOTE | 2022-09-10 23:43 | NUR ---
Called thrid floor for bed #.
--- NOTE | 2022-09-10 23:55 | NUR ---
Called third floor, beds are available but no staff per chargemaster specialist nurse.
--- NOTE | 2022-09-11 | NUR ---
Called Maintenance Helper to let them know that there is no staff to recieve patient, but beds are avaible per Charge nurse.
[2022-09-11] MEDS ORDERED: ENOXAPARIN SODIUM 40 MG/0.4 ML DISP.SYRIN SQ ONE (00:35)
[2022-09-11] MEDS ORDERED: CEFTRIAXONE /D5W 50ML IVPB **ER PYXIS IV ONE (00:35)
[2022-09-11] MEDS: CEFTRIAXONE 1 G in IV DEXTROSE 5% 50 ML IV SCH ×2 (00:50→21:40)
[2022-09-11] MEDS: ENOXAPARIN SODIUM 40 MG/0.4 ML DISP.SYRIN SQ SCH ×2 (00:50→22:02)
--- NOTE | 2022-09-11 02:24 | NUR ---
Patient is resting comfortably in bed.
--- NOTE | 2022-09-11 05:00 | NUR ---
Called third floor and spoke to Thi charge nurse and recieved room assignement #[id number] for pt.
--- NOTE | 2022-09-11 06:04 | NUR ---
Reynaldo christianson called and spoke to Thi OJEDA, report was given.
--- NOTE | 2022-09-11 06:49 | NUR ---
Transferred patient upstairs via gurney. LYNETTE Ness made aware of pt arrival.
[2022-09-11 08:41] LABS: HEMATOCRIT 36.9 % (36.7-47.1); MEAN CORPUSCULAR HEMOGLOBIN 31.3 uug (23.8-33.4); MEAN CORPUSCULAR VOLUME 92.3 fL (73.0-96.2); PLATELET COUNT (AUTO) 181 K/uL (152-348)
[2022-09-11 08:48] LABS: CARBON DIOXIDE 29 mmol/L (21-32); CHLORIDE 105 mmol/L (98-107); CREATININE 0.8 mg/dL (0.6-1.3); GLUCOSE 91 mg/dL (74-106); MAGNESIUM 1.8 mg/dL (1.8-2.4); PHOSPHOROUS 3.3 mg/dL (2.5-4.9); POTASSIUM 3.9 mmol/L (3.5-5.1); UREA NITROGEN, BLOOD 12 mg/dL (7-18)
[2022-09-11] MEDS ORDERED: MAGNESIUM SULFATE/D5W 100 ML IV SCH (12:00)
[2022-09-11 14:04] VITALS: BP 131/67
[2022-09-11] MEDS: IV D5 1/2 NS 1000 ML 1,000 ML IV PRN (14:45)
[2022-09-11] MEDS ORDERED: QUET100T PO (16:15)
[2022-09-11] MEDS: PANTOPRAZOLE SODIUM 40 MG TABLET.DR PO SCH (18:57)
--- NOTE | 2022-09-11 19:05 | NUR ---
AOOX2 with episodes of confusion. No SOB noted. Magnesium given. Pt. in d5w 1/2 NS in right hand. FAmily was on bed side.
[2022-09-11 20:27] VITALS: BP 143/73
[2022-09-12] MEDS: IV D5 1/2 NS 1000 ML 1,000 ML IV PRN ×2 (04:05→18:53)
[2022-09-12 04:35] VITALS: BP 127/69
[2022-09-12] MEDS: PANTOPRAZOLE SODIUM 40 MG TABLET.DR PO SCH (06:51)
[2022-09-12 07:37] LABS: HEMATOCRIT 39.2 % (36.7-47.1); MEAN CORPUSCULAR HEMOGLOBIN 30.9 uug (23.8-33.4); MEAN CORPUSCULAR VOLUME 92.5 fL (73.0-96.2); PLATELET COUNT (AUTO) 194 K/uL (152-348)
--- NOTE | 2022-09-12 07:53 | NUR ---
Pt had an uneventful night. IVf is still infusing to right hand. Kept clean and dry. Endorsed to Shannan to continue pts plan of care.
[2022-09-12 08:00] VITALS: BP 139/71
[2022-09-12 08:05] LABS: CREATININE 0.7 mg/dL (0.6-1.3); POTASSIUM 4.2 mmol/L (3.5-5.1)
--- NOTE | 2022-09-12 12:01 | NUR ---
NOK -sister requested copy of his medication - MAXI informed and a copy was provided
--- NOTE | 2022-09-12 14:08 | NUR ---
Patient's sister just left - will call later
[2022-09-12 16:00] VITALS: BP 123/72
--- NOTE | 2022-09-12 18:55 | NUR ---
1) 1Liter iv fluids started as per regime. 2) Iv site clean , dry, patent and reinforced with tape. 3) Remains pleasantly confused. 4) Will endorse care to night staff accordingly.
[2022-09-12 20:00] VITALS: BP 112/68
[2022-09-12] MEDS: CEFTRIAXONE 1 G in IV DEXTROSE 5% 50 ML IV SCH (20:17)
[2022-09-12] MEDS: ENOXAPARIN SODIUM 40 MG/0.4 ML DISP.SYRIN SQ SCH (20:19)
[2022-09-13] VITALS: BP 145/65
[2022-09-13 04:00] VITALS: BP 153/69
[2022-09-13] MEDS: PANTOPRAZOLE SODIUM 40 MG TABLET.DR PO SCH (06:05)
[2022-09-13] MEDS: IV D5 1/2 NS 1000 ML 1,000 ML IV PRN (06:51)
[2022-09-13 07:10] LABS: HEMATOCRIT 41.5 % (36.7-47.1); MEAN CORPUSCULAR HEMOGLOBIN 31.5 uug (23.8-33.4); MEAN CORPUSCULAR VOLUME 93.3 fL (73.0-96.2); PLATELET COUNT (AUTO) 205 K/uL (152-348)
--- NOTE | 2022-09-13 08:05 | NUR ---
received pt on bed.aox1. in no acute distress. lying on his side. no pain complain. iv access intact an patent. heel float. safety measure in placed. will cont to monitor.
[2022-09-13 08:23] LABS: CARBON DIOXIDE 29 mmol/L (21-32); CHLORIDE 104 mmol/L (98-107); GLUCOSE 104 mg/dL (74-106); POTASSIUM 4.1 mmol/L (3.5-5.1)
[2022-09-13 08:24] LABS: CREATININE 0.7 mg/dL (0.6-1.3); MAGNESIUM 2.1 mg/dL (1.8-2.4); PHOSPHOROUS 4.1 mg/dL (2.5-4.9); UREA NITROGEN, BLOOD 10 mg/dL (7-18)
[2022-09-13] MEDS ORDERED: DOCUSATE SODIUM 100 MG CAPSULE PO SCH (09:00)
[2022-09-13] MEDS ORDERED: ASPIRIN 325 MG TABLET PO SCH (09:00)
[2022-09-13] MEDS: GABAPENTIN 300 MG CAPSULE PO SCH ×2 (10:03→13:00)
[2022-09-13] MEDS: QUETIAPINE FUMARATE 25 MG TABLET PO SCH ×2 (10:03→13:00)
[2022-09-13] MEDS ORDERED: DIVA-76 PO (10:12)
[2022-09-13] MEDS ORDERED: QUET25TA PO (10:18)
[2022-09-13] MEDS ORDERED: CEPH250C PO (10:21)
[2022-09-13 11:56] VITALS: BP 117/60
--- NOTE | 2022-09-13 12:29 | NUR ---
pt will be discharge back to [facility]. report given to william dc. patient will be cone picker by [facility] ambulance at 2pm per cm.
[2022-09-13] MEDS ORDERED: DIVALPROEX SPRINKLE 125 MG CAP.SPRINK PO SCH (13:00)
--- NOTE | 2022-09-13 13:00 | NUR ---
pt was being fed by his sister. pureed diet was tolerated.
--- NOTE | 2022-09-13 14:19 | NUR ---
pt is discharge. exit care provided. family at bedside. skin intact.vitals wnl. iv access removed. pt will go be transferred to [facility]. all belongings accounted for. pt was pickup by [facility] ambulance.
[2022-09-13] MEDS ORDERED: DIVALPROEX ER 250 MG TAB.SR.24H PO SCH (21:00)
[2022-09-13] MEDS ORDERED: DIVALPROEX 250 MG TABLET.DR PO SCH (21:00)
[2022-09-13] MEDS ORDERED: QUETIAPINE FUMARATE 25 MG TABLET PO SCH (21:00)
[2022-09-13] MEDS ORDERED: QUETIAPINE FUMARATE 100 MG TABLET PO SCH (21:00)
[2022-09-13] MEDS ORDERED: FINASTERIDE 5 MG TABLET PO SCH (21:00)
[2022-09-13] MEDS ORDERED: TAMSULOSIN HCL 0.4 MG CAP.SR.24H PO SCH (21:00)
== END 2022-09-13 14:15 | DRG 690 ==
LOC: ER 19:42 → MEDSURG3 22:45
PROVIDERS: ADMIT Student in an Organized Health Care Education/Training Program; ATTEND Student in an Organized Health Care Education/Training Program
DX: N39.0 Urinary tract infection, site not specified (principal); E44.0 Moderate protein-calorie malnutrition; G20 Parkinson's disease; F02.80 Dementia in other diseases classified elsewhere, unspecified severity, without behavioral disturbance, psychotic disturbance, mood disturbance, and anxiety; R62.7 Adult failure to thrive; K21.9 Gastro-esophageal reflux disease without esophagitis; N40.0 Benign prostatic hyperplasia without lower urinary tract symptoms; Z79.899 Other long term (current) drug therapy; K59.00 Constipation, unspecified; R13.10 Dysphagia, unspecified; M16.12 Unilateral primary osteoarthritis, left hip; E78.5 Hyperlipidemia, unspecified; Z88.1 Allergy status to other antibiotic agents; F41.9 Anxiety disorder, unspecified
CPT/HCPCS: 36415; 70450; 71045; 83605; 83735; 84100; 84443; 84484; 85025; 93005; A4663; C1758; G0378; J0696; J1650; J3475; J7040; J7042